=== PATIENT | female | born 1955 | race Caucasian/White ===

== ENCOUNTER 2019-08-08 07:48 | Outpatient (CLI) | payer MEDICARE, SELFPAY ==
--- NOTE | ~2019-08-08 | DEXA_ITS ---
Bone Density Report Name: Jade Rodriguez Age: 64 Sex: Female Ethnicity: White Date of : 1955 Indication: osteopenia; history of glucocorticoids; prior fracture; Referring Provider: Derrick, Jackson Study: Bone densitometry was performed. Exam Date: August 08, 2019 Accession number: [id number] Bone Density: Region BMD T-score Z-score Classification AP Spine (L1-L4) 0.877 -1.5 0.3 Osteopenia Femoral Neck (Right) 0.631 -2.0 -0.4 Osteopenia Total Hip (Right) 0.798 -1.2 0.1 Osteopenia World Health Organization criteria for BMD impression classify patients as: Normal (T-score at or above -1.0), Osteopenia (T-score between -1.0 and -2.5), or Osteoporosis (T-score at or below -2.5). 10-year Fracture Risk: FRAX not reported because: Prior hip or vertebral fracture Previous Exams: Region Exam Age BMD T-score BMD Change BMD Change Date g/cm2 vs Baseline vs Previous AP Spine(L1-L4) 08/08/2019 64 0.877 -1.5 -0.099(-10.2%) -0.026(-2.8%)* 08/02/2015 60 0.903 -1.3 -0.074(-7.5%)# -0.037(-4.0%)# 07/21/2013 58 0.940 -1.0 -0.036(-3.7%)# -0.036(-3.7%)# 02/05/2011 56 0.976 -0.6 Total Hip(Right) 08/08/2019 64 0.798 -1.2 -0.216(-21.3%) -0.034(-4.1%)* 08/05/2017 62 0.833 -0.9 -0.182(-17.9%) -0.006(-0.7%) 08/02/2015 60 0.839 -0.8 -0.176(-17.3%) -0.136(-14.0%) 07/21/2013 58 0.975 0.3 -0.040(-3.9%)# -0.040(-3.9%)# 02/05/2011 56 1.014 0.6 *Denotes significance at 95% confidence level, LSC for AP Spine = 0.022 g/cm2, LSC for Total Hip = 0.027 g/cm2 Clinical Information Provided by Patient: Have had a previous hip or vertebral fracture Has had a low trauma fracture Has taken Glucocorticoids Has used the following medications: Vitamin D, Calcium Patient maximum height was 66 Menopause Age: 45 Does not regularly consume dairy products Drinks caffeinated beverages Onset of menses at age 11 Number of children 1 Impression: The patient has low bone mass, based on the Right Femoral Neck T-score. The patient has risk factors, including: previous fracture, history of glucocorticoid therapy. The BMD for the AP Spine(L1-L4) decreased, changing by -2.8% since the last DXA exam. The BMD for the Total Hip(Right) decreased, changing by -4.1% since the last DXA exam. Discussion: INCREASED RISK OF FRACTURE DUE TO HISTORY OF FRACTURE. The patient's previous fracture puts the patient at high risk of a future fracture. In untreated patients, the risk of osteoporotic fracture increases approximat
== END 2019-08-08 07:49 | disposition home or self-care (01) ==
LOC: ANHIMG 07:57
PROVIDERS: PCP Internal Medicine; Visit Provider Internal Medicine
DX: N95.1 Menopausal and female climacteric states (principal); M85.88 Other specified disorders of bone density and structure, other site; M85.851 Other specified disorders of bone density and structure, right thigh
CPT/HCPCS: 77080